=== PATIENT | male | born 1945 | race Caucasian/White ===

== ENCOUNTER 2016-12-10 07:09 | Outpatient (CLI) | payer MEDICARE | END 2016-12-10 07:10 | disposition home or self-care (01) | DX: Z00.00 Encounter for general adult medical examination without abnormal findings (principal); Z79.899 Other long term (current) drug therapy; Z12.5 Encounter for screening for malignant neoplasm of prostate; E78.5 Hyperlipidemia, unspecified | CPT/HCPCS: 36415; 80053; 80061; 81001; G0103 ==

== ENCOUNTER 2016-12-24 07:06 | Outpatient (CLI) | payer MEDICARE | END 2016-12-24 07:07 | disposition home or self-care (01) | DX: R31.29 Other microscopic hematuria (principal) ==

== ENCOUNTER 2017-11-24 07:26 | Outpatient (CLI) | payer MEDICARE ==
[2017-11-24 10:34] LABS: ALBUMIN 4.3 g/dL (3.2-5.5); ALBUMIN/GLOBULIN RATIO 1.6 (1.0-2.2); ALKALINE PHOSPHATASE 78 IU/L (42-121); ALT ALANINE AMINOTRANSFERASE 23 IU/L (10-60); AST ASPARTATE AMINOTRANSFERASE 23 IU/L (10-42); BUN - BLOOD UREA NITROGEN 21 mg/dL (6-20); CALCIUM 9.2 mg/dL (8.5-10.3); CARBON DIOXIDE - CO2 29 mmol/L (21-32); CHLORIDE 102 mmol/L (101-111); CHOL/HDL RATIO 3.5 (<5.0); CHOLESTEROL 208 mg/dL; GFR - MDRD 73 (>89); GLUCOSE 89 mg/dL (70-100); HDL CHOLESTEROL 59 mg/dL; LDL CHOLESTEROL,CALCULATED 139 mg/dL; LDL/HDL RATIO 2.4 (<3.6); SODIUM 138 mmol/L (135-145); VLDL CHOLESTEROL 10 mg/dL
== END 2017-11-24 07:27 | disposition home or self-care (01) ==
LOC: LAB.F 07:26
PROVIDERS: ATTEND Family Medicine
DX: Z00.00 Encounter for general adult medical examination without abnormal findings (principal); Z12.5 Encounter for screening for malignant neoplasm of prostate; E78.5 Hyperlipidemia, unspecified; Z79.899 Other long term (current) drug therapy
CPT/HCPCS: 36415; 80053; 80061; G0103; 84153

== ENCOUNTER 2018-07-25 10:33 | Outpatient (CLI) | payer MEDICARE ==
[2018-07-25 18:11] LABS: BASOPHILS % (AUTO) 0.9 %; EOSINOPHILS # (AUTO) 0.1 10^3/uL (0.0-0.7); EOSINOPHILS % (AUTO) 1.4 %; HGB - HEMOGLOBIN 15.3 g/dL (14.0-18.0); LYMPHOCYTES # (AUTO) 1.6 10^3/uL (1.5-3.5); LYMPHOCYTES % (AUTO) 35.1 %; MEAN CORPUSCULAR HEMOGLOBIN 29.3 pg (27.0-31.0); MEAN CORPUSCULAR HGB CONC 34.4 g/dL (32.0-36.0); MEAN CORPUSCULAR VOLUME 85.1 fL (80.0-94.0); MEAN PLATELET VOLUME 7.8 fL (7.4-11.4); MONOCYTES # (AUTO) 0.5 10^3/uL (0.0-1.0); MONOCYTES % (AUTO) 9.7 %; NEUTROPHILS # (AUTO) 2.5 10^3/uL (1.5-6.6); NEUTROPHILS % (AUTO) 52.9 %; PLT - PLATELET COUNT 206 10^3/uL (130-450); RED BLOOD COUNT 5.21 10^6/uL (4.70-6.10); WHITE BLOOD COUNT 4.7 x10^3/uL (4.8-10.8)
[2018-07-25 18:13] LABS: ALBUMIN 4.3 g/dL (3.2-5.5); ALBUMIN/GLOBULIN RATIO 1.7 (1.0-2.2); CALCIUM 9.1 mg/dL (8.5-10.3); CREATININE 1.1 mg/dL (0.6-1.2); TOTAL PROTEIN 6.9 g/dL (6.7-8.2)
== END 2018-07-25 10:34 | disposition home or self-care (01) ==
LOC: LAB.F 10:33
PROVIDERS: ATTEND Internal Medicine
DX: R11.0 Nausea (principal); R63.4 Abnormal weight loss
CPT/HCPCS: 36415; 80053; 84443; 85025

== ENCOUNTER 2020-05-24 05:16 | Emergency (ER) | payer MEDICARE ==
[2020-05-24] MEDS ORDERED: EPINEPHrine ABBOJECT 1 MG/10 ML SYRINGE IVP ONE (05:17)
[2020-05-24] MEDS ORDERED: AMIODARONE 150 MG/3 ML VIAL IV ONE (05:17)
[2020-05-24] MEDS ORDERED: SODIUM BICARBONATE ABBOJECT 50 MEQ/50 ML SYRINGE IVP ONE (05:17)
--- NOTE | 2020-05-24 06:04 | ED Physician Documentation ---
PD HPI CPR - Stated complaint Stated Complaint: CPR - History obtained from History obtained from: Family (spouse) - History of Present Illness Timing - onset: How many minutes ago (approximately 30-40 minutes DEPUTY ADMINISTRATOR) Timing - onset during: Rest Preceding symptoms: Dyspnea Witnessed: Arrest witnessed Fall: No fall Treatment DEPUTY ADMINISTRATOR: Other (none) Advanced directive: Full code - Additional information Additional information: patient brought to ED by private vehicle and, along with two ED RNs, I assisted in getting this patient out of the passenger seat of the vehicle where he is found to be pulseless and apneic. Patient's says he awoke approximately 30-40 minutes DEPUTY ADMINISTRATOR c/o shortness of breath, and they discussed whether to call 911 and decided she would drive him to ED. Approximately 5-10 minutes before arriving to ED, he suddenly became unconscious in the passenger seat and stopped breathing Review of Systems Unable to obtain: Unresponsive PD PAST MEDICAL HISTORY - Past Medical History Cardiovascular: None Respiratory: None Endocrine/Autoimmune: None GI: Diverticulitis : None HEENT: None Psych: None Musculoskeletal: None - Past Surgical History General: Bowel surgery, Colonoscopy - Present Medications Home Medications: Ambulatory Orders Medication Instructions Recorded Confirmed No Known Home Medications 05/24/20 05/24/20 - Allergies Allergies/Adverse Reactions: Allergies Allergy/AdvReac Type Severity Reaction Status Date / Time No Known Drug Allergies Allergy Verified 05/24/20 06:28 PD ED PE NORMAL - Vitals Vital signs reviewed: Yes PD ED PE EXPANDED - General General: Unresponsive, Other (apneic) - Eyes Eyes: Other (pupils are fixed and dilated) - Cardiac Cardiac: Other (pulseless) - Respiratory Respiratory: Other (apneic) - Abdomen Abdomen: No: Distended - Derm Derm: Pale - Extremities Extremities: Decreased/absent pulse - Neuro Neuro: Unresponsive - GCS Eye Opening: None Motor: None Verbal: None Total: 3 Results - Vitals Vitals: Vital Signs - 24 hr 05/24/20 05:17 Temperature 0 C L Heart Rate 0 L Respiratory 0 L Rate Blood Pressure 0/0 L O2 Saturation 0 L Oxygen O2 Source Room air Procedures - Intubation Provider: Emergency physician Medications: Other (none) Blade: Glidescope Tube: Size-enter number (7.5), Cuffed Route: Oral Confirmation: Direct visualization (via glidescope), Bilateral breath sounds, No abdominal breath sound, Other (color capnography) Complications: No compications PD MEDICAL DECISION MAKING - ED course Complexity details: considered differential, d/w family ED course: patient arrives pulseless and apneic, retrieved from passenger seat of private vehicle by two ED RNs and myself; upon placement on stretcher that was brought out to parking lot alongside of the vehicle, ED RN began CPR and continued CPR by sitting on stretcher as ED RN and I wheeled the stretcher into ED. He is asystole with some agonal cardiac activity on initial pulse check. IV established and given epinephrine as CPR resumed. He underwent several more pulse checks and never had pulses on presentation nor all subsequent pulse checks. His rhythm was shockable at times (ventricular fibrillation, pulseless ventricular tachycardia) and otherwise was asystole, PEA. attempts at defibrillation with shocks were unsuccessful, as was CPR and the medications administered (total of 5 mg epinephrine, 300mg amiodarone followed by 150mg amiodarone, magnesium sulfate, and sodium bicarbonate). Patient was intubated during the course of resuscitative efforts. Resuscitative efforts stopped at 5:45 AM. He remained pulseless and apneic, pupils fixed and dilated, no heart sounds and no cardiac motion/movement seen with bedside ultrasound. I pronounced patient at 5:45 AM. I informed patient's spouse of the resuscitative efforts and patient's . - Critical Care Time(min): 30 Time Includes: Direct patient care, Reassess patient, Document care, See progress note Data interpretation: See progress note Procedures included in critical care time: See progress note Procedures excluded from critical care time: Intubation, CPR, See progress note Departure - Departure Disposition: 20 Clinical Impression: Cardiopulmonary arrest, Condition: Critical Discharge Date/Time: 05/24/20 10:38
[2020-05-24 06:28] VITALS: BP 0/0
[2020-05-24] MEDS ORDERED: EPINEPHrine 1 MG/ML AMP IVP STA ×5 (08:02→08:05)
[2020-05-24] MEDS ORDERED: AMIODARONE 150 MG/3 ML VIAL IVP STA ×2 (08:02→08:03)
[2020-05-24] MEDS ORDERED: MAGNESIUM SULFATE 1 GM/2 ML VIAL IVP STA (08:03)
[2020-05-24] MEDS ORDERED: SODIUM BICARBONATE ABBOJECT 50 MEQ/50 ML SYRINGE IVP STA (08:04)
== END 2020-05-24 10:38 | disposition expired ==
LOC: ED 05:16
DX: I46.9 Cardiac arrest, cause unspecified (principal)
CPT/HCPCS: 31500; 36415; 96374; 96375; 99291; J0282